=== PATIENT | male | born 1990 | race Caucasian/White ===

== ENCOUNTER 2019-11-02 16:09 | Emergency (ER) | payer OTHER, SELFPAY ==
[2019-11-02 16:37] VITALS: BP 151/86; PULSE 59; RESP 20; TEMP 36.8; O2SAT 97; BMI 28.2
--- NOTE | 2019-11-02 16:42 | HMH.EDUTC ---
[facility] [place] Disposition Clinical Impression: Otitis media Qualifiers: Otitis media type: unspecified Laterality: left Qualified Code(s): H66.92 - Otitis media, unspecified, left ear Disposition: Home, Self-Care Condition on Discharge: Good Instructions: Middle Ear Infections (Alternative Therapy), Middle Ear Infection, Amoxicillin Additional Instructions: Take medication as prescribed for otitis media left ear *Return if needed Straight to ER if any life threatening symptoms Follow up with Family doctor if no improvement or any worsening of symptoms Over the counter Motrin and/or Tylenol for fever or pain Warm salt water gargles may help with throat irritation Prescriptions: Amoxicillin [Amoxicillin 875MG Tab] 875 mg PO Q12H #20 tab Transmission Status: Pending to [facility] Referrals: Jeffrey Butts MD [Primary Care Provider] - As needed Time of Disposition: 16:47 Medical Decision Making - Mac Inquiry Pt receiving controlled substance: No Mac was queried for this patient: No Vital Signs: 11/02/19 16:37 Temperature 98.2 F Temperature Source Oral Pulse Rate [Right Brachial] 59 L Respiratory Rate 20 Blood Pressure [Right Arm] 151/86 H Blood Pressure Mean [Right Arm] 107 Blood Pressure Source [Right Arm] Automatic Cuff Blood Pressure Position [Right Arm] Sitting 02 Sat by Pulse Oximetry 97 Oxygen Delivery Method Room Air - Lab Data Lab results reviewed: Yes: I reviewed the patient's lab results. [facility] HPI - General Stated complaint: Sore throat Time Seen by Provider: 11/02/19 16:42 Mode of Arrival: Ambulatory Source of Information: Patient Limitations: No Limitations Description of Symptoms (Recalled from Triage Doc. by RN): PATIENT C/O LEFT-SIDED THROAT AND EAR PAIN SINCE SATURDAY; DENIES FEVER OR ANY OTHER SYMPTOMS. NO KNOWN SICK CONTACTS HEENT Symptoms (Recalled from RN notes): Yes Resp Symptoms (Recalled from RN notes): No Skin Symptoms (Recalled from RN notes): No MS Symptoms (Recalled from RN notes): No Functional Status (Recalled from RN notes): WNL - History of Present Illness Provider Complaint: Patient states that for the last week he has been having pain in his left ear and left side of his throat States that he isnt sure if it is his ear or throat States that when he swallows pain shoots into the left side of his throat and ear and over all not feeling well so he came in - Related Data Home Medications Medication Instructions Recorded Confirmed Buprenorphine HCl/Naloxone HCl 1 tab SL DAILY 08/18/18 08/18/18 [Buprenorphin-Naloxon 8-2 mg Sl] Previous Rx's Medication Instructions Recorded Amoxicillin [Amoxicillin 875MG 875 mg PO Q12H #20 tab 08/18/18 Tab] Amoxicillin [Amoxicillin 875MG 875 mg PO Q12H #20 tab 11/02/19 Tab] Allergies Allergy/AdvReac Type Severity Reaction Status Date / Time No Known Allergies Allergy Verified 05/31/18 15:32 - Worker's Comp Is this a Worker's Comp case?: No [facility] History - Hepatitis A Screen Drug use history?: No High risk sexual behaviors?: No History of sexually transmitted infection?: No Currently employed?: No Childcare worker?: No Do you have indoor plumbing?: Yes Do you have electricity?: Yes Attestation statement:: This patient has been screened for Hepatitis A risk factors. I have reviewed the patient's past medical history: Yes Medical History: Denies:: Diabetes Mellitus Type 1, Diabetes Mellitus Type 2 - Social History Smoking Status: Current every day smoker Tobacco Type: cigarettes # Packs/Day (cigarettes): 1 Alcohol Intake: current Alcohol Intake Frequency:: holidays/special occasions only Substance Use Type: heroin Occupational Status: other Family Hx:: Non-contributory ROS Obtained: Yes All systems reviewed & no additional complaints, Yes Systems reviewed as appropriate & no additional complaints - Constitutional Constitutional: Reports system reviewed and no additional compl
[2019-11-02 16:50] VITALS: BP 151/86; PULSE 59; RESP 20; TEMP 36.8; O2SAT 97
[2019-11-02 16:57] LABS: UTC Strep Screen (Rapid) Negative (Negative)
== END 2019-11-02 16:57 | disposition home or self-care (01) ==
PROVIDERS: Emergency Provider Nurse Practitioner; PCP Emergency Medicine
DX: H66.92 Otitis media, unspecified, left ear (principal); F17.210 Nicotine dependence, cigarettes, uncomplicated
CPT/HCPCS: 87880; 99201

== ENCOUNTER → 2019-12-08 08:40 | Outpatient (CLI) | payer OTHER, SELFPAY ==
--- NOTE | 2019-12-08 08:41 | US_ITS ---
PROCEDURE: US GALLBLADDER CLINICAL INDICATION: abdominal pain Upper abdominal pain with nausea COMPARISON: No exams were available for comparison FINDINGS: Pancreas: Pancreas is not well delineated due to overlying bowel gas. CT or MRI without and with contrast with pancreatic protocol may provide further evaluation if clinically desired. Liver: Unremarkable. There is appropriate direction of blood flow within a non dilated portal vein. Right kidney: Unremarkable appearing. No hydronephrosis. Gallbladder: No stones are evident. There is no gallbladder wall thickening. Common duct is normal in diameter. IMPRESSION: 1. Pancreas is not well delineated due to overlying bowel gas. CT or MRI without and with contrast with pancreatic protocol may provide further evaluation if clinically desired. 2. No gallstones or other significant anomaly Dictated by: Bhupinder Berrios MD 12/08/2019 15:55 Electronically signed by Bhupinder Berrios MD in [place] 12/08/2019 15:55
== END ==
PROVIDERS: PCP Emergency Medicine; Visit Provider Emergency Medicine
DX: R10.9 Unspecified abdominal pain (principal)
CPT/HCPCS: 76705

== ENCOUNTER → 2019-12-23 08:38 | Outpatient (CLI) | payer OTHER, SELFPAY ==
[2019-12-23 08:57] LABS: Basophils % 0.3 % (0.1-2.0); Eosinophils # 0.3 K/mm3 (0.0-0.4); Eosinophils % 2.9 % (0.1-12.0); Hematocrit 42.1 % (42.0-52.0); Hemoglobin 14.7 g/dL (14.1-18.0); Lymphocytes # 3.8 K/mm3 (0.7-4.5); Lymphocytes % 41.9 % (10-50); Mean Corpuscular HGB Conc 34.8 g/dL (31.8-35.4); Mean Corpuscular Hemoglobin 33.1 pg (27.0-31.2); Mean Platelet Volume 7.2 fl (7.4-10.4); Monocytes # 0.5 K/mm3 (0.1-1.0); Monocytes % 5.8 % (1.7-9.3); Neutrophils # 4.5 K/mm3 (1.8-7.8); Platelet Count 336 K/mm3 (142-424); Red Blood Count 4.43 M/mm3 (4.60-6.20); Red Cell Distribution Width 13.2 % (11.5-17.5); White Blood Count 9.1 K/mm3 (4.8-10.8)
[2019-12-23 10:13] LABS: Chloride 103 mmol/L (98-107)
[2019-12-23 10:14] LABS: Potassium 4.5 mmoL/L (3.5-5.1); Sodium 140 mmol/L (136-145)
[2019-12-23 10:16] LABS: Alanine Aminotransferase 28 U/L (12-78); Alkaline Phosphatase 69 U/L (38-126); Amylase 64 U/L (30-110); Anion Gap 13.5 mEq/L (5-15); Aspartate Amino Transferase 29 U/L (17-59); Bilirubin,Total 0.3 mg/dl (0.2-1.3); Blood Urea Nitrogen 5 mg/dl (9-20); Carbon Dioxide 28 mmol/L (22.0-30.0); Estimated Glomerular Filt Rate 133 ml/min (>60); GFR (African American) 161 ML/MIN (>60)
[2019-12-23 10:17] LABS: Albumin Level 4.3 g/dl (3.5-5.0); Albumin/Globulin Ratio 1.5 (1.1-1.8); Calcium 9.7 mg/dl (8.4-10.2); Globulin 2.8 g/dL (1.3-3.2); Glucose 85 mg/dl (74-100); Lipase 165 U/L (23-300); Total Protein,Serum 7.1 g/dl (6.3-8.2)
[2019-12-23 12:52] LABS: Coronavirus 19 IgG Antibody Negative (Negative); Coronavirus 19 IgM Antibody Negative (Negative)
== END ==
PROVIDERS: Visit Provider Surgery
DX: R10.10 Upper abdominal pain, unspecified (principal); Z01.818 Encounter for other preprocedural examination
CPT/HCPCS: 36415; 80053; 82150; 83690; 85025; 86328

== ENCOUNTER 2019-12-24 08:26 | Day surgery (SDC) | payer OTHER, SELFPAY ==
[2019-12-22 10:33] VITALS: BMI 28.7
[2019-12-24 09:21] VITALS: BP 137/68; PULSE 57; RESP 18; TEMP 36.4; O2SAT 99
--- NOTE | 2019-12-24 09:57 | HMH.ANESCL ---
[facility] Anesthesia Checklist - Patient Identification Patient Identification: Arm Band, Verbal (Name & ) - Structural Data Admitted From: Home Planned Operative Procedure/s: EGD Consent for Planned Operative Procedure(s) Verified: Yes Verified Documents: Surgical Consent, History and Physical - NPO Status Verified Time NPO: 23:00 - Chart Verification Results Verified: CBC, BMP - Additional verifications Anesthesia Reactions: No Hx Blood Transfusions: No Blood Transfusion Reaction: No - Airway Assessment C-Spine Mobility Assessed: Yes TMJ Mobility Assessed: Yes Dentition: Good Dentition - Neurological Assessment Level of Consciousness: Awake, Alert, Appropriate, Follows Commands Hx Seizures: No Numbness or tingling in extremities: No - Anesthesia Plan Anesthesia Risk discussed: Yes Anesthesia Plan: Verified ASA Class: II Anesthesia Type: MAC [facility] History I have reviewed the patient's past medical history: Yes Medical History: Reports:: Gastroesophageal Reflux Disease(GERD) Denies:: Cancer, Diabetes Mellitus Type 1, Diabetes Mellitus Type 2, Internal Pacemaker, MRSA, Seizures *Have you ever received a pneumonia vaccine?: No *Have you received a flu vaccine this season?: No Other Medical History: Denies: Blood Transfusion Reaction Anesthesia experience/problems:: None Laterality Cases: Bilateral: Myringotomy (Ear Tubes) Other Surgeries: Yes: Other. No: Pacemaker Amputation: No Fractures: Yes (rib) - *Social History Last grade of school completed: 11th or 12th Smoking Status: Current every day smoker Tobacco Type: cigarettes # Packs/Day (cigarettes): 1 Alcohol Intake: current Alcohol Intake Frequency:: holidays/special occasions only Substance Use Type: heroin, former substance user *Occupational Status:: other Housing: house Household Members: spouse *Travel in the last 8 weeks: None Family Hx:: No significant family history
[2019-12-24 10:12] VITALS: O2SAT 99
--- NOTE | 2019-12-24 10:25 | HMH.SCOPE ---
- Procedure: Date: 12/24/19 Procedure Performed:: Esophagogastroduodenoscopy with biopsy Indications:: Upper abdominal pain Performing Provider:: Geo Veliz MD Referring Provider:: . Sedation:: Monitored anesthesia care Procedure:: After informed consent was obtained the patient was taken to the endoscopy suite. Sedation ensued after the patient was transferred to the left lateral decubitus position. Pulse, blood pressure, and oxygen saturation were monitored throughout the procedure. The endoscope was advanced beyond the duodenal bulb. Retroflexion within the gastric lumen was accomplished. The gastroscope was carefully removed and the patient was transferred to recovery in stable condition. Please see findings and specimens below for detail. Findings:: Gastroesophageal junction at 37 cm Sliding hiatal hernia Patchy gastritis Focal inflammation and changes consistent with small healed ulcer in the prepyloric region Specimens:: Biopsy of prepyloric healed ulcer Recommendations:: Follow-up pathology Proton pump inhibition Ongoing evaluation of possible biliary disease Complications:: No immediate Estimated blood obtained (mL): 1
[2019-12-24 10:27] VITALS: BP 118/51; PULSE 79; RESP 16; TEMP 36.4; O2SAT 99
[2019-12-24 10:37] VITALS: BP 122/62; PULSE 61; RESP 16; O2SAT 99
[2019-12-24 10:47] VITALS: BP 127/68; PULSE 60; RESP 16; O2SAT 100
[2019-12-24 10:57] VITALS: BP 118/77; PULSE 56; RESP 16; O2SAT 100
== END 2019-12-24 10:57 | disposition home or self-care (01) ==
LOC: OUTP 08:27
PROVIDERS: PCP Emergency Medicine; Visit Provider Surgery
PROC: 0DJ08ZZ Inspection of Upper Intestinal Tract, Via Natural or Artificial Opening Endoscopic (ICD-10-PCS; CPT 43235; principal; 2019-12-24 10:00)
DX: K29.60 Other gastritis without bleeding (principal); K44.9 Diaphragmatic hernia without obstruction or gangrene; K31.89 Other diseases of stomach and duodenum; Z96.22 Myringotomy tube(s) status; Z72.0 Tobacco use; F11.11 Opioid abuse, in remission; K21.9 Gastro-esophageal reflux disease without esophagitis
CPT/HCPCS: 43239

== ENCOUNTER 2020-03-09 17:49 | Emergency (ER) | payer OTHER, SELFPAY ==
[2020-03-09 18:09] VITALS: BP 122/65; PULSE 63; RESP 19; TEMP 36.8; O2SAT 98; BMI 28.5
--- NOTE | 2020-03-09 18:32 | HMH.EDUTC ---
[facility] [place] Disposition Clinical Impression: Otitis media Qualifiers: Otitis media type: unspecified Laterality: left Qualified Code(s): H66.92 - Otitis media, unspecified, left ear Disposition: Home, Self-Care Condition on Discharge: Good Instructions: Middle Ear Infections (Alternative Therapy), Middle Ear Infection, Amoxicillin, Fluticasone Nasal [place] Additional Instructions: *Monitor Temp, Over the counter Motrin or Tylenol as directed/as needed Tylenol every 4 hours and Motrin every 6 hours (as long as your family doctor has told you that you can take it) for fever or pain. and straight to ER if unable to lower temp less than 101.0 after medication given *Humidifier/Vaporizer *Flonase 2 sprays in each nostril daily but be aware that it may take 2-3 days before you notice improvement *Take medication as prescribed Follow up IMMEDIATELY for new or worsening symptoms or no Noticeable improvement over the next 48-72 hours. 911 for difficulty breathing or swallowing Prescriptions: Amoxicillin [Amoxicillin 875MG Tab] 875 mg PO Q12H #20 tab Transmission Status: Pending to [id number] Fluticasone Propionate [Flonase 50mcg nasal spray 16gm] 1 - 2 spr NS DAILY #1 bottle Transmission Status: Pending to [id number] Referrals: Jeffrey Butts MD [Primary Care Provider] - As needed Time of Disposition: 18:34 Medical Decision Making - Mac Inquiry Pt receiving controlled substance: No Mac was queried for this patient: No Vital Signs: 03/09/20 18:09 Temperature 98.2 F Temperature Source Oral Pulse Rate [Radial] 63 Respiratory Rate 19 Blood Pressure [Right Arm] 122/65 Blood Pressure Mean [Right Arm] 84 Blood Pressure Source [Right Arm] Automatic Cuff Blood Pressure Position [Right Arm] Sitting 02 Sat by Pulse Oximetry 98 Oxygen Delivery Method Room Air [facility] [place] HPI - General Stated complaint: lEFT EAR PAIN Time Seen by Provider: 03/09/20 18:32 Mode of Arrival: Ambulatory Source of Information: Patient Limitations: No Limitations Description of Symptoms (Recalled from Triage Doc. by RN): left ear pain since saturday HEENT Symptoms (Recalled from RN notes): Yes Resp Symptoms (Recalled from RN notes): No Skin Symptoms (Recalled from RN notes): No MS Symptoms (Recalled from RN notes): No Functional Status (Recalled from RN notes): wnl - History of Present Illness Provider Complaint: Patient states that he has chronic ear infections States that he has been having pain and pressure in his left ear for over a week and has continued to get worse States that today pain was worse and having pressure like feeling and he knew the infection was getting worse so he came in to get checked - Related Data Home Medications Medication Instructions Recorded Confirmed buprenorphine 2 mg-naloxone 0.5 mg 1 tab SUBLINGUAL DAILY 11/30/19 01/08/20 sublingual tablet calcium carbonate 200 mg calcium 200 mg PO BID 11/30/19 01/08/20 (500 mg) chewable tablet Pantoprazole Sodium [Protonix 40mg 40 mg PO DAILY 12/22/19 01/08/20 tablet] Previous Rx's Medication Instructions Recorded Amoxicillin [Amoxicillin 875MG 875 mg PO Q12H #20 tab 03/09/20 Tab] Fluticasone Propionate [Flonase 1 - 2 spr NS DAILY #1 bottle 03/09/20 50mcg nasal spray 16gm] Allergies Allergy/AdvReac Type Severity Reaction Status Date / Time No Known Allergies Allergy Verified 12/22/19 10:32 - Worker's Comp Is this a Worker's Comp case?: No [facility] History - Hepatitis A Screen Drug use history?: No High risk sexual behaviors?: No History of sexually transmitted infection?: No Currently employed?: No Childcare worker?: No Do you have indoor plumbing?: Yes Do you have electricity?: Yes Attestation statement:: This patient has been screened for Hepatitis A risk factors. I have reviewed the patient's past medical history: Yes Medical History: Reports:: Gastroesophageal Reflux Disease(GERD) Denies:: Cancer,
[2020-03-09 18:38] VITALS: BP 122/65; PULSE 63; RESP 19; TEMP 36.8; O2SAT 98
== END 2020-03-09 18:39 | disposition home or self-care (01) ==
PROVIDERS: Emergency Provider Nurse Practitioner; PCP Emergency Medicine
DX: H66.92 Otitis media, unspecified, left ear (principal); K21.9 Gastro-esophageal reflux disease without esophagitis; F17.210 Nicotine dependence, cigarettes, uncomplicated
CPT/HCPCS: 99201

== ENCOUNTER 2020-10-19 17:18 | Emergency (ER) | payer OTHER, SELFPAY ==
[2020-10-19 17:50] VITALS: BP 134/78; PULSE 89; RESP 22; TEMP 39.1; O2SAT 100; BMI 29.1
--- NOTE | 2020-10-19 18:19 | HMH.EDUTC ---
[facility] [place] Disposition Clinical Impression: Viral syndrome Disposition: Home, Self-Care Condition on Discharge: Good Instructions: DI for Viral Syndrome, DI for Fever (Symptom) -- Adult, DI for COVID-19 (Suspected or Confirmed ), Coronavirus Disease 2019, Preventing the Spread of Coronavirus Discharge Instructions Additional Instructions: *Monitor Temp, Over the counter Motrin or Tylenol as directed/as needed Tylenol every 4 hours and Motrin every 6 hours (as long as your family doctor has told you that you can take it) for fever or pain. and straight to ER if unable to lower temp less than 101.0 after medication given *Warm salt water gargles may help to soothe the throat *Throat Lozenges *Warm fluids like tea with honey may help to soothe the throat *Sleep elevated *Humidifier/Vaporizer Your throat swab was sent for culture. Those results are typically sent to your primary care. Be sure to follow up in 2-3 days with your family doctor/primary care physician if no improvement so they can review those result and treat if necessary. If you don?t have a primary care doctor, I recommend you get one but in the mean time, you will have to return to a walk in clinic Follow up IMMEDIATELY for new or worsening symptoms or no Noticeable improvement over the next 48-72 hours. 911 for difficulty breathing or swallowing You were tested for today for COVID19 your test result should be back in the next 24-48 hours, you may call to the [facility] to see if your test results are back in the next 48 hours [phone] [facility] hours are 9am-9pm You was given a handout with instructions for Self Quarantine and Self isolation for while you wait on test results and what to do if they are positive If you are positive the Health Dept will be contacting you also Referrals: Jeffrey Butts MD [Primary Care Provider] - As needed Forms: Work/School Release Time of Disposition: 18:49 Medical Decision Making - Mac Inquiry Pt receiving controlled substance: No Mac was queried for this patient: No Vital Signs: 10/19/20 17:50 Temperature 102.3 F H Temperature Source Oral Pulse Rate [Right Brachial] 89 Respiratory Rate 22 Blood Pressure [Right Arm] 134/78 Blood Pressure Mean [Right Arm] 96 Blood Pressure Source [Right Arm] Automatic Cuff Blood Pressure Position [Right Arm] Sitting 02 Sat by Pulse Oximetry 100 Oxygen Delivery Method Room Air - Lab Data Lab results reviewed: Yes: I reviewed the patient's lab results. Lab Results 10/19/20 18:07: Influenza Type A Ag Negative, Influenza Type B Ag Negative 10/19/20 18:07: Strep Scn Rapid Clinic Negative Orders (Tests/Meds): ED MEDICATIONS Discontinued Medications Generic Name Dose Route Start Last Admin Trade Name Sarah PRN Reason Stop Dose Admin Acetaminophen 650 mg 10/19/20 18:07 10/19/20 18:16 Acetaminophen 325mg Tab PO 10/19/20 18:08 650 mg ONCE ONE Administration Ibuprofen 600 mg 10/19/20 18:06 10/19/20 18:16 Ibuprofen 600 Mg Tablet PO 10/19/20 18:07 600 mg ONCE ONE Administration ORDERS Category Date Time Status Covid-19 Nasal PCR ([facility]) Routine Lab 10/19/20 17:51 Received Strep Screen Confirmation Stat Micro 10/19/20 18:07 Received [facility] UTC HPI - General Stated complaint: sore throat, headache, Time Seen by Provider: 10/19/20 18:19 Mode of Arrival: Ambulatory Source of Information: Patient Limitations: No Limitations Description of Symptoms (Recalled from Triage Doc. by RN): PATIENT C/O SORE THROAT, HEADACHE, AND LOSS OF TASTE THAT STARTED THIS AFTERNOON HEENT Symptoms (Recalled from RN notes): Yes Resp Symptoms (Recalled from RN notes): No Skin Symptoms (Recalled from RN notes): No MS Symptoms (Recalled from RN notes): No Functional Status (Recalled from RN notes): WNL - History of Present Illness Provider Complaint: Patient states that he wasnt feeling well yesterday and last night he eat some hot chips and they tasted bland and not hot St
[2020-10-19 18:35] LABS: UTC Influenza A Antigen Negative (Negative); UTC Influenza B Antigen Negative (Negative); UTC Strep Screen (Rapid) Negative (Negative)
[2020-10-19 18:53] VITALS: BP 134/78; PULSE 89; RESP 22; TEMP 37; O2SAT 100
== END 2020-10-19 18:54 | disposition home or self-care (01) ==
PROVIDERS: Emergency Provider Nurse Practitioner; PCP Emergency Medicine
DX: B34.9 Viral infection, unspecified (principal); Z20.822 Contact with and (suspected) exposure to COVID-19; K21.9 Gastro-esophageal reflux disease without esophagitis; F17.210 Nicotine dependence, cigarettes, uncomplicated
CPT/HCPCS: 87804; 87880; 99202; G0463; U0003

== ENCOUNTER 2021-03-20 11:04 | Emergency (ER) | payer OTHER, SELFPAY ==
[2021-03-20 11:57] VITALS: BP 132/75; PULSE 85; RESP 16; TEMP 37.1; O2SAT 98; BMI 29.5
--- NOTE | 2021-03-20 12:14 | HMH.EDUTC ---
[facility] [place] Disposition Clinical Impression: Acute bronchitis Qualifiers: Bronchitis organism: unspecified organism Qualified Code(s): J20.9 - Acute bronchitis, unspecified Disposition: Home, Self-Care Condition on Discharge: Good Instructions: DI for Acute Bronchitis, DI for COVID-19 (Suspected or Confirmed ), Preventing the Spread of Coronavirus Discharge Instructions Additional Instructions: Drink plenty of fluids. Take tylenol or ibuprofen for pain or fever. Take the medications as directed. Follow up with your regular doctor. GO TO THE ER FOR ANY WORSENING SYMPTOMS Quarantine until you know the results of your covid-19 test. If it is positive, the health department should call you and give you further instructions about your length of Quarantine and other things. Notify your school or workplace of your results and follow their instructions regarding return to work/school. Prescriptions: Brompheniramine/Pseudoephed/Dm [Bromfed Dm Cough Syrup] 5 ml PO Q6HP PRN #240 ml PRN Reason: Cough Transmission Status: Received by [facility] predniSONE [Prednisone 20mg Tab] 20 mg PO BID 4 Days #8 tab Transmission Status: Received by [facility] Azithromycin [Z-Darshan 250mg Tab*] 250 mg PO UD DOSE PK #6 tab Transmission Status: Received by [facility] Referrals: Jeffrey Butts MD [Primary Care Provider] - Time of Disposition: 12:36 Medical Decision Making - Medical Records Medical records reviewed: No: I reviewed the patient's medical records. - Mac Inquiry Pt receiving controlled substance: No Vital Signs: 03/20/21 11:57 03/20/21 12:54 Temperature 98.7 F 98.7 F Temperature Source Oral Oral Pulse Rate 84 Pulse Rate [Right] 85 Respiratory Rate 16 16 Blood Pressure 130/74 Blood Pressure [Right Arm] 132/75 Blood Pressure Mean [Right Arm] 94 Blood Pressure Source Automatic Cuff Blood Pressure Source [Right Arm] Automatic Cuff Blood Pressure Position Sitting Blood Pressure Position [Right Arm] Sitting 02 Sat by Pulse Oximetry 98 Oxygen Delivery Method Room Air Room Air Orders (Tests/Meds): ORDERS Category Date Time Status Covid-19 Nasal PCR ([facility]) Routine Lab 03/20/21 12:46 Received [facility] [place] HPI - General Stated complaint: cough Time Seen by Provider: 03/20/21 12:14 Mode of Arrival: Ambulatory Source of Information: Patient Limitations: No Limitations Description of Symptoms (Recalled from Triage Doc. by RN): coughing since last night HEENT Symptoms (Recalled from RN notes): No Resp Symptoms (Recalled from RN notes): No Skin Symptoms (Recalled from RN notes): No MS Symptoms (Recalled from RN notes): No Functional Status (Recalled from RN notes): na - History of Present Illness Provider Complaint: He states that for the past 2 days he has had a productive cough and he has felt bad. His currently is being treated for bronchitis. He thinks that he has bronchitis also. He denies any known covid-19 exposure. - Related Data Home Medications Medication Instructions Recorded Confirmed buprenorphine 2 mg-naloxone 0.5 mg 1 tab SUBLINGUAL DAILY 11/30/19 10/19/20 sublingual tablet Previous Rx's Medication Instructions Recorded Azithromycin [Z-Darshan 250mg Tab*] 250 mg PO UD DOSE PK #6 tab 03/20/21 Brompheniramine/Pseudoephed/Dm 5 ml PO Q6HP PRN #240 ml 03/20/21 [Bromfed Dm Cough Syrup] predniSONE [Prednisone 20mg 20 mg PO BID 4 Days #8 tab 03/20/21 Tab] Allergies Allergy/AdvReac Type Severity Reaction Status Date / Time No Known Allergies Allergy Verified 12/22/19 10:32 - Worker's Comp Is this a Worker's Comp case?: No [facility] History - Hepatitis A Screen Drug use history?: No High risk sexual behaviors?: No History of sexually transmitted infection?: No Currently employed?: No Childcare worker?: No Do you have indoor plumbing?: Yes Do you have electricity?: Yes Attestation [facility]
[2021-03-20 12:54] VITALS: BP 130/74; PULSE 84; RESP 16; TEMP 37.1; O2SAT 98
== END 2021-03-20 12:54 | disposition home or self-care (01) ==
PROVIDERS: Emergency Provider Nurse Practitioner Family; PCP Emergency Medicine
DX: U07.1 COVID-19 (principal); J20.9 Acute bronchitis, unspecified; K21.9 Gastro-esophageal reflux disease without esophagitis
CPT/HCPCS: 99202; C9803; G0463; U0003; U0005

== ENCOUNTER 2021-11-13 08:57 | Emergency (ER) | payer OTHER, SELFPAY ==
--- NOTE | 2021-11-13 09:11 | HMH.EDUTC ---
[facility] [place] Disposition Clinical Impression: Otitis media Qualifiers: Otitis media type: suppurative Chronicity: acute Laterality: bilateral Recurrence: non-recurrent Spontaneous tympanic membrane rupture: without spontaneous rupture Qualified Code(s): H66.003 - Acute suppurative otitis media without spontaneous rupture of ear drum, bilateral Disposition: Home, Self-Care Condition on Discharge: Good Instructions: Middle Ear Infection Additional Instructions: Drink plenty of fluids. Take tylenol or ibuprofen for pain or fever. Take the medications as directed. Follow up with your regular doctor. GO TO THE ER FOR ANY WORSENING SYMPTOMS Prescriptions: Brompheniramine/Pseudoephed/Dm [Bromfed Dm Cough Syrup] 5 ml PO Q6HP PRN #240 ml PRN Reason: Cough Transmission Status: Received by [facility] Amoxicillin/Potassium Clav [Amox-Clav 875-125 mg Tablet] 1 tab PO BID #20 tab Transmission Status: Received by [facility] methylPREDNISolone [Medrol] 4 mg PO DIRECTED 6 Days #21 packet Transmission Status: Received by [facility] Referrals: Jeffrey Butts MD [Primary Care Provider] - Time of Disposition: 09:13 Medical Decision Making - Medical Records Medical records reviewed: No: I reviewed the patient's medical records. - Mac Inquiry Pt receiving controlled substance: No Vital Signs: 11/13/21 09:17 11/13/21 09:21 Temperature 98.2 F 98.2 F Temperature Source Oral Pulse Rate 56 L Pulse Rate [Left Radial] 56 L Respiratory Rate 18 18 Blood Pressure 138/73 Blood Pressure [Right Arm] 138/73 Blood Pressure Mean [Right Arm] 94 02 Sat by Pulse Oximetry 99 - Lab Data Lab results reviewed: Yes: I reviewed the patient's lab results. Lab Results 11/13/21 09:07: Group A Strep Rapid Negative Orders (Tests/Meds): ORDERS Category Date Time Status Strep Screen Confirmation Stat Micro 11/13/21 09:07 Received [facility] [place] HPI - General Stated complaint: lt ear pain Time Seen by Provider: 11/13/21 09:11 - History of Present Illness Provider Complaint: He c/o left ear pain, popping and pressure for the past 3 days. - Related Data Home Medications Medication Instructions Recorded Confirmed buprenorphine 2 mg-naloxone 0.5 mg 1 tab SUBLINGUAL DAILY 11/30/19 10/19/20 sublingual tablet Previous Rx's Medication Instructions Recorded Azithromycin [Z-Darshan 250mg Tab*] 250 mg PO UD DOSE PK #6 tab 03/20/21 Brompheniramine/Pseudoephed/Dm 5 ml PO Q6HP PRN #240 ml 03/20/21 [Bromfed Dm Cough Syrup] predniSONE [Prednisone 20mg 20 mg PO BID 4 Days #8 tab 03/20/21 Tab] Amoxicillin/Potassium Clav 1 tab PO BID #20 tab 11/13/21 [Amox-Clav 875-125 mg Tablet] Brompheniramine/Pseudoephed/Dm 5 ml PO Q6HP PRN #240 ml 11/13/21 [Bromfed Dm Cough Syrup] methylPREDNISolone [Medrol] 4 mg PO DIRECTED 6 Days #21 11/13/21 packet Allergies Allergy/AdvReac Type Severity Reaction Status Date / Time No Known Allergies Allergy Verified 12/22/19 10:32 [facility] History - Hepatitis A Screen Attestation statement:: This patient has been screened for Hepatitis A risk factors. I have reviewed the patient's past medical history: Yes Medical History: Reports:: Gastroesophageal Reflux Disease(GERD) Denies:: Cancer, Diabetes Mellitus Type 1, Diabetes Mellitus Type 2, Internal Pacemaker, MRSA, Seizures Other Medical History: Denies: Blood Transfusion Reaction Laterality Cases: Bilateral: Myringotomy (Ear Tubes) Other Surgeries: Yes: Other. No: Pacemaker Amputation: No Fractures: Yes (rib) - Social History Smoking Status: Current every day smoker Tobacco Type: cigarettes # Packs/Day (cigarettes): 1 Alcohol Intake: never Alcohol Intake Frequency:: holidays/special occasions only Substance Use Type: heroin, former substance user Occupational Status: other Housing: house Household Members: spouse Family Hx:: No signi
[2021-11-13 09:17] VITALS: BP 138/73; PULSE 56; RESP 18; TEMP 36.8; O2SAT 99; BMI 29.4
[2021-11-13 09:21] VITALS: BP 138/73; PULSE 56; RESP 18; TEMP 36.8
[2021-11-13 09:26] LABS: Strep Scrn Group A (Rapid) Negative (Negative)
== END 2021-11-13 09:21 | disposition home or self-care (01) ==
PROVIDERS: Emergency Provider Nurse Practitioner Family; PCP Emergency Medicine
DX: H66.003 Acute suppurative otitis media without spontaneous rupture of ear drum, bilateral (principal)
CPT/HCPCS: 87430; 99212; G0463

== ENCOUNTER 2021-12-27 11:40 | Emergency (ER) | payer OTHER, SELFPAY ==
[2021-12-27 11:59] VITALS: BP 138/76; PULSE 76; RESP 18; TEMP 36.7; O2SAT 98; BMI 28.6
--- NOTE | 2021-12-27 12:08 | HMH.EDUTC ---
[facility] [place] Disposition Clinical Impression: Otitis media Qualifiers: Otitis media type: unspecified Laterality: left Qualified Code(s): H66.92 - Otitis media, unspecified, left ear Disposition: Home, Self-Care Condition on Discharge: Good Instructions: Middle Ear Infection, Amoxicillin Additional Instructions: *Monitor Temp, Over the counter Motrin or Tylenol as directed/as needed Tylenol every 4 hours and Motrin every 6 hours (as long as your family doctor has told you that you can take it) for fever or pain. and straight to ER if unable to lower temp less than 101.0 after medication given Take medications as prescribed *Sleep elevated *Humidifier/Vaporizer Follow up IMMEDIATELY for new or worsening symptoms or no Noticeable improvement over the next 48-72 hours. 911 for difficulty breathing or swallowing Prescriptions: Amoxicillin [Amoxicillin 875MG Tab] 875 mg PO Q12H #20 tab Transmission Status: Pending to [facility] methylPREDNISolone [Medrol 4mg tab] 4 mg PO DIRECTED #21 tab Transmission Status: Pending to [facility] Referrals: Jeffrey Butts MD [Primary Care Provider] - As needed Forms: Work/School Release Time of Disposition: 12:11 Medical Decision Making - Mac Inquiry Pt receiving controlled substance: No Mac was queried for this patient: No Vital Signs: 12/27/21 11:59 Temperature 98.1 F Temperature Source Oral Pulse Rate [Left] 76 Respiratory Rate 18 Blood Pressure [Right Arm] 138/76 Blood Pressure Mean [Right Arm] 96 02 Sat by Pulse Oximetry 98 [facility] [place] HPI - General Stated complaint: lt ear pain Time Seen by Provider: 12/27/21 12:08 Mode of Arrival: Ambulatory Source of Information: Patient Limitations: No Limitations Description of Symptoms (Recalled from Triage Doc. by RN): patient comes in with complaints of left ear pain. began 3 days ago HEENT Symptoms (Recalled from RN notes): Yes Resp Symptoms (Recalled from RN notes): No Skin Symptoms (Recalled from RN notes): No MS Symptoms (Recalled from RN notes): No Functional Status (Recalled from RN notes): n/a - History of Present Illness Provider Complaint: Patient state that he has been having pain in his left ear for the last 3 days that has continued to get worse State that he had some left over amoxicillin and took it and it helped some but he is out and his ear is still hurting so he came in - Related Data Home Medications Medication Instructions Recorded Confirmed buprenorphine 2 mg-naloxone 0.5 mg 1 tab SUBLINGUAL DAILY 11/30/19 12/27/21 sublingual tablet Previous Rx's Medication Instructions Recorded Amoxicillin [Amoxicillin 875MG 875 mg PO Q12H #20 tab 12/27/21 Tab] methylPREDNISolone [Medrol 4mg 4 mg PO DIRECTED #21 tab 12/27/21 tab] Allergies Allergy/AdvReac Type Severity Reaction Status Date / Time No Known Allergies Allergy Verified 12/27/21 12:01 - Worker's Comp Is this a Worker's Comp case?: No [facility] History - Hepatitis A Screen Attestation statement:: This patient has been screened for Hepatitis A risk factors. I have reviewed the patient's past medical history: Yes Medical History: Reports:: Gastroesophageal Reflux Disease(GERD) Denies:: Cancer, Diabetes Mellitus Type 1, Diabetes Mellitus Type 2, Internal Pacemaker, MRSA, Seizures Other Medical History: Denies: Blood Transfusion Reaction Laterality Cases: Bilateral: Myringotomy (Ear Tubes) Other Surgeries: Yes: Other. No: Pacemaker Amputation: No Fractures: Yes (rib) - Social History Smoking Status: Current every day smoker Tobacco Type: cigarettes # Packs/Day (cigarettes): 1 Alcohol Intake: never Alcohol Intake Frequency:: holidays/special occasions only Substance Use Type: heroin, former substance user Occupational Status: other Housing: house Household Members: spouse Family Hx:: No significant family history ROS Obtained: Yes All systems reviewed & no addit
[2021-12-27 12:19] VITALS: BP 138/76; PULSE 76; RESP 18; TEMP 36.7
== END 2021-12-27 12:20 | disposition home or self-care (01) ==
PROVIDERS: Emergency Provider Nurse Practitioner; PCP Emergency Medicine
DX: H66.92 Otitis media, unspecified, left ear (principal)
CPT/HCPCS: 99212; G0463

== ENCOUNTER 2022-04-22 09:24 | Emergency (ER) | payer OTHER, SELFPAY ==
--- NOTE | 2022-04-22 10:12 | EXP.UTC ---
Discharge Plan Disposition Patient Disposition: Home, Self-Care Condition: Good Prescriptions Prescriptions: New methylprednisolone 4 mg Tablets,Dose Pack 4 mg PO DIRECTED Qty: 21 0RF troayfifsrecpll-yixlcjupy-ZK [Bromfed DM] 2-30-10 mg/5 mL Syrup 5 ml PO Q6H PRN (Reason: Cough) Qty: 240 0RF amoxicillin-pot clavulanate 875-125 mg Tablet 1 tab PO Q12H Qty: 20 0RF fluticasone propionate [fluticasone propionate] 50 mcg/actuation spray,suspension 1 spr intranasal DAILY 30 Days Qty: 120 0RF No Action buprenorphine-naloxone 2-0.5 mg tablet, sublingual 1 tab SL DAILY Label Comments: DISSOLVE 1.5 TABLETS SUBLINGUALLY EVERY DAY Referrals Follow up/Referrals: Jeffrey Butts MD [Primary Care Provider] - See instructions Activity Restrictions/Add. Instructions Additional Instructions/Restrictions: Drink plenty of fluids. Take tylenol or ibuprofen for pain or fever. Take the medications as directed. Follow up with your regular doctor. GO TO THE ER FOR ANY WORSENING SYMPTOMS Clinical Impressions Clinical Impression: Otitis media Instructions Patient Instructions: Middle Ear Infection, Fluticasone Nasal [place] Discharge ED Provider: Harry Bello [facility] [place] General Stated complaint: Left Earache Time Seen by Provider: 04/22/22 10:12 History of Present Illness Provider Complaint: He c/o left ear pain for the past 3 days. He gets ear infections frequently and he is followed by ent, but he can't be seen there until 04/30,so he came here today. Related Data Home Medications Medication Instructions Recorded Confirmed buprenorphine 2 mg-naloxone 0.5 mg 1 tab sublingual DAILY drug 11/30/19 03/06/22 sublingual tablet addiction Previous Rx's Medication Instructions Recorded amoxicillin 875 mg-potassium 1 tab PO Q12H #20 tabs 04/22/22 clavulanate 125 mg tablet tycvqbphgtwhpac-hbpbribqciuyrtp-QS 5 ml PO Q6H PRN Cough #240 mL 04/22/22 2 mg-30 mg-10 mg/5 mL oral syrup (Bromfed DM) fluticasone propionate 50 1 spr intranasal DAILY 30 days 04/22/22 mcg/actuation nasal #120 ea spray,suspension methylprednisolone 4 mg tablets in 4 mg PO DIRECTED #21 tabs 04/22/22 a dose pack Allergies Allergy/AdvReac Type Severity Reaction Status Date / Time No Known Allergies Allergy Verified 04/22/22 10:21 PFSH PFS Medical History GERD (gastroesophageal reflux disease) Left serous otitis media Surgical History Hx of myringotomy Family History Other Hypertension Social History Smoking Status: Current every day smoker tobacco type: cigarettes packs per day: 1 second hand exposure: Yes alcohol intake: never substance use type: former substance user and heroin current occupational status: other Travel in the last 8 weeks: None household members: spouse housing: house current occupational exposures/hazards: No caffeine: Yes ROS Obtained: Yes All systems reviewed & no additional complaints except as documented Constitutional Constitutional: Denies chills, Denies fever(s) and Reports poor appetite Eyes Eyes: Denies eye discharge ENT Ears, Nose, Mouth, and Throat: Denies ear discharge, Reports otalgia, Denies hearing loss, Denies sinus pain and Reports sore throat Cardiovascular Cardiovascular: Denies chest pain and Denies dyspnea Respiratory Respiratory: Denies chest congestion, Reports cough and Denies dyspnea Gastrointestinal Gastrointestingal: Denies abdominal pain, diarrhea, nausea or vomiting Musculoskeletal Musculoskeletal: Denies arthralgias Integumentary/Breasts Skin/Breast: Denies rash Physical Exam General General appearance: alert and in no apparent distress Head Head exam: atraumatic, normocephalic and normal i
[2022-04-22 10:20] VITALS: BP 126/76; PULSE 61; RESP 18; TEMP 36.6; O2SAT 98; BMI 29.8
[2022-04-22 10:51] VITALS: BP 126/76; PULSE 61; RESP 18; TEMP 36.6
== END 2022-04-22 10:51 | disposition home or self-care (01) ==
PROVIDERS: Emergency Provider Nurse Practitioner Family; PCP Emergency Medicine
DX: H65.92 Unspecified nonsuppurative otitis media, left ear (principal); R05.9 Cough, unspecified; K21.9 Gastro-esophageal reflux disease without esophagitis; F17.210 Nicotine dependence, cigarettes, uncomplicated; Z79.51 Long term (current) use of inhaled steroids; Z79.52 Long term (current) use of systemic steroids; Z82.49 Family history of ischemic heart disease and other diseases of the circulatory system

== ENCOUNTER 2022-07-01 11:22 | Emergency (ER) | payer OTHER, SELFPAY ==
--- NOTE | 2022-07-01 11:33 | EXP.UTC ---
Discharge Plan Disposition Patient Disposition: Home, Self-Care Condition: Good Prescriptions Prescriptions: New bsadjzwxaopjgxi-lehmyrnli-RM [Bromfed DM] 2-30-10 mg/5 mL Syrup 5 ml PO Q6H PRN (Reason: Cough) Qty: 240 0RF amoxicillin-pot clavulanate 875-125 mg Tablet 1 tab PO Q12H Qty: 20 0RF prednisone [prednisone] 20 mg tablet 20 mg PO BID 3 Days Qty: 6 0RF No Action buprenorphine-naloxone 2-0.5 mg tablet, sublingual 1 tab SL DAILY Label Comments: DISSOLVE 1.5 TABLETS SUBLINGUALLY EVERY DAY Referrals Follow up/Referrals: Jeffrey Butts MD [Primary Care Provider] - See instructions Activity Restrictions/Add. Instructions Additional Instructions/Restrictions: Drink plenty of fluids. Take tylenol or ibuprofen for pain or fever. Take the medications as directed. Follow up with your regular doctor. GO TO THE ER FOR ANY WORSENING SYMPTOMS Clinical Impressions Clinical Impression: Left otitis media Instructions Patient Instructions: Middle Ear Infection Discharge ED Provider: Harry Bello [facility] [place] General Stated complaint: ear pain Time Seen by Provider: 07/01/22 11:33 History of Present Illness Provider Complaint: He states that for the past 3 days he has had worsening left ear pain. Related Data Home Medications Medication Instructions Recorded Confirmed buprenorphine 2 mg-naloxone 0.5 mg 1 tab sublingual DAILY drug 11/30/19 07/01/22 sublingual tablet addiction Previous Rx's Medication Instructions Recorded amoxicillin 875 mg-potassium 1 tab PO Q12H #20 tabs 07/01/22 clavulanate 125 mg tablet lrsutakukgogzxe-rwsgsfsrwlmcewd-YB 5 ml PO Q6H PRN Cough #240 mL 07/01/22 2 mg-30 mg-10 mg/5 mL oral syrup (Bromfed DM) prednisone 20 mg tablet 20 mg PO BID 3 days #6 tabs 07/01/22 Allergies Allergy/AdvReac Type Severity Reaction Status Date / Time No Known Allergies Allergy Verified 07/01/22 11:48 [facility] Disclaimer: The information contained in this section may have been updated after the patient was seen, as this information can be updated by other users. Medical History GERD (gastroesophageal reflux disease) Left serous otitis media Surgical History Hx of myringotomy Family History Other Hypertension Social History Smoking Status: Current every day smoker tobacco type: cigarettes packs per day: 1 second hand exposure: Yes alcohol intake: never substance use type: former substance user and heroin current occupational status: other Travel in the last 8 weeks: None household members: spouse housing: house current occupational exposures/hazards: No caffeine: Yes ROS Obtained: Yes All systems reviewed & no additional complaints except as documented Constitutional Constitutional: Denies chills, Reports fever(s) and Reports poor appetite Eyes Eyes: Denies eye discharge ENT Ears, Nose, Mouth, and Throat: Denies ear discharge, Reports otalgia, Denies hearing loss, Denies sinus pain and Reports sore throat Cardiovascular Cardiovascular: Denies chest pain and Denies dyspnea Respiratory Respiratory: Denies chest congestion, Reports cough and Denies dyspnea Gastrointestinal Gastrointestingal: Denies abdominal pain, diarrhea, nausea or vomiting Musculoskeletal Musculoskeletal: Denies arthralgias Integumentary/Breasts Skin/Breast: Denies rash Physical Exam General General appearance: alert and in no apparent distress Head Head exam: atraumatic, normocephalic and normal inspection Eye Eye exam: Present normal appearance; Absent PERRL or EOMI ENT ENT exam: Present mucous membranes moist and normal external ear exam Expanded ENT Exam TM/Canal exam: Bilateral TM: erythema, bulging and effusion Nose exa
[2022-07-01 11:35] VITALS: BP 146/74; PULSE 70; RESP 20; TEMP 36.7; O2SAT 97; BMI 30.2
[2022-07-01 12:15] VITALS: BP 146/74; PULSE 70; RESP 20; TEMP 36.7; O2SAT 97
== END 2022-07-01 12:15 | disposition home or self-care (01) ==
PROVIDERS: Emergency Provider Nurse Practitioner Family; PCP Emergency Medicine
DX: H66.92 Otitis media, unspecified, left ear (principal)
CPT/HCPCS: 99212; 99213; G0463

== ENCOUNTER 2023-02-19 17:05 | Emergency (ER) | payer OTHER, SELFPAY ==
--- NOTE | 2023-02-19 17:15 | EXP.UTC ---
Discharge Plan Disposition Patient Disposition: Home, Self-Care Condition: Good Prescriptions Prescriptions: New methylprednisolone 4 mg Tablets,Dose Pack 4 mg PO DIRECTED Qty: 21 0RF pseudoephedrine HCl 30 mg tablet 30 mg PO Q6HP PRN (Reason: Congestion) Qty: 30 0RF amoxicillin-pot clavulanate 875-125 mg Tablet 1 tab PO Q12H Qty: 20 0RF No Action buprenorphine-naloxone 2-0.5 mg tablet, sublingual 1 tab SL DAILY Patient Comments: DISSOLVE 1.5 TABLETS SUBLINGUALLY EVERY DAY fluticasone propionate [Flonase Allergy Relief] 50 mcg/actuation spray,suspension 2 spray intranasal DAILY Qty: 16 3RF Rx Instructions: administer into each nostril methylprednisolone [Medrol (Darshan)] 4 mg tablets,dose pack See Rx Instructions PO PER PKG DIR Qty: 21 0RF Rx Instructions: PO PER PKG DIR Referrals Follow up/Referrals: Jeffrey Butts MD [Primary Care Provider] - See instructions Activity Restrictions/Add. Instructions Additional Instructions/Restrictions: Drink plenty of fluids. Take tylenol or ibuprofen for pain or fever. Take the medications as directed. Follow up with your regular doctor. GO TO THE ER FOR ANY WORSENING SYMPTOMS Clinical Impressions Clinical Impression: Otitis media Instructions Patient Instructions: Middle Ear Infection Discharge ED Provider: Harry Bello [facility] General Stated complaint: lt ear pain Time Seen by Provider: 02/19/23 17:15 History of Present Illness Provider Complaint: He states that for the past 5 days he has had worsening left ear pain and pressure. He has a history of getting ear infections kind of frequently. Related Data Home Medications Medication Instructions Recorded Confirmed buprenorphine 2 mg-naloxone 0.5 mg 1 tab sublingual DAILY drug 11/30/19 12/05/22 sublingual tablet addiction Previous Rx's Medication Instructions Recorded fluticasone propionate 50 2 spray intranasal DAILY allergies 12/05/22 mcg/actuation nasal #16 grams spray,suspension (Flonase Allergy Relief) methylprednisolone 4 mg tablets in See Rx Instructions PO PER PKG DIR 12/05/22 a dose pack (Medrol (Darshan)) #21 tabs amoxicillin 875 mg-potassium 1 tab PO Q12H #20 tabs 02/19/23 clavulanate 125 mg tablet methylprednisolone 4 mg tablets in 4 mg PO DIRECTED #21 tabs 02/19/23 a dose pack pseudoephedrine HCl 30 mg tablet 30 mg PO Q6HP PRN Congestion #30 02/19/23 tabs Allergies Allergy/AdvReac Type Severity Reaction Status Date / Time No Known Allergies Allergy Verified 12/05/22 11:46 [facility] Disclaimer: The information contained in this section may have been updated after the patient was seen, as this information can be updated by other users. Medical History (Updated 02/19/23 @ 17:33 by Harry Bello APRN) GERD (gastroesophageal reflux disease) Left serous otitis media Post-nasal drainage Surgical History Hx of myringotomy Family History Other Hypertension Social History Smoking Status: Current every day smoker tobacco type: cigarettes packs per day: 1 second hand exposure: Yes alcohol intake: never substance use type: former substance user and heroin current occupational status: other Travel in the last 8 weeks: None household members: spouse housing: house current occupational exposures/hazards: No caffeine: Yes ROS Obtained: Yes All systems reviewed & no additional complaints except as documented Constitutional Constitutional: Denies chills, Reports fever(s) and Reports poor appetite Eyes Eyes: Denies eye discharge ENT Ears, Nose, Mouth, and Throat: Denies ear discharge, Reports otalgia, Denies hearing loss, Denies sinus pain and Reports sore throat Cardiovascular Cardiovascular: Denies chest pain and D
[2023-02-19 17:18] VITALS: BP 104/52; PULSE 58; RESP 18; TEMP 36.8; O2SAT 98; BMI 27.1
[2023-02-19 17:35] VITALS: BP 104/52; PULSE 58; RESP 16; TEMP 36.8; O2SAT 98
== END 2023-02-19 17:39 | disposition home or self-care (01) ==
PROVIDERS: Emergency Provider Nurse Practitioner Family; PCP Emergency Medicine
DX: H66.93 Otitis media, unspecified, bilateral (principal); F17.210 Nicotine dependence, cigarettes, uncomplicated; K21.9 Gastro-esophageal reflux disease without esophagitis
CPT/HCPCS: 99212; 99214; G0463

== ENCOUNTER 2023-05-22 10:51 | Emergency (ER) | payer OTHER, SELFPAY ==
[2023-05-22 10:53] VITALS: BP 103/42; PULSE 62; RESP 18; O2SAT 99; BMI 27.1
--- NOTE | 2023-05-22 11:02 | XR_ITS ---
FINAL REPORT CLINICAL HISTORY: TOP OF FOOT INJURY. large object fell on foot. COMPARISON: None FINDINGS: LEFT FOOT Three views of the left foot demonstrate no acute fracture or dislocation. The visualized joint spaces are normally aligned. The soft tissues are unremarkable. There is deformity of the distal phalanx of the first toe, distal aspect, that appears chronic. IMPRESSION: No acute bony abnormality. Reviewed, Interpreted and Dictated by Raghu Ortiz MD Transcribed by Danae Chaney Authenticated and [facility]
--- NOTE | 2023-05-22 11:13 | PC.NURSE ---
From radiology via wheelchair
--- NOTE | 2023-05-22 11:30 | HMH.EDGENADL ---
Discharge Plan Disposition Patient Disposition: Home, Self-Care Prescriptions Prescriptions: No Action buprenorphine-naloxone 2-0.5 mg tablet, sublingual 1 tab SL DAILY Patient Comments: DISSOLVE 1.5 TABLETS SUBLINGUALLY EVERY DAY fluticasone propionate [Flonase Allergy Relief] 50 mcg/actuation spray,suspension 2 spray intranasal DAILY Qty: 16 3RF Rx Instructions: administer into each nostril methylprednisolone [Medrol (Darshan)] 4 mg tablets,dose pack See Rx Instructions PO PER PKG DIR Qty: 21 0RF Rx Instructions: PO PER PKG DIR methylprednisolone 4 mg Tablets,Dose Pack 4 mg PO DIRECTED Qty: 21 0RF pseudoephedrine HCl 30 mg tablet 30 mg PO Q6HP PRN (Reason: Congestion) Qty: 30 0RF amoxicillin-pot clavulanate 875-125 mg Tablet 1 tab PO Q12H Qty: 20 0RF Referrals Follow up/Referrals: Scott Danielle DO [Primary Care Provider] - See instructions Activity Restrictions/Add. Instructions Additional Instructions/Restrictions: There is no evidence of any fracture or dislocation on your x-ray please treat this conservatively with ice compression and elevation as discussed. You may bear weight as tolerated if not improving in 1 to 2 weeks please follow-up with an orthopedic surgeon. Clinical Impressions Clinical Impression: Contusion of foot, Crush injury of foot Discharge ED Provider: Wilfred Santa [facility] HPI General Chief complaint: Extremity Injury, Lower Stated complaint: AO left foot pain swelling Time Seen by Provider: 05/22/23 11:26 Mode of Arrival: Ambulatory Source of Information: Patient Limitations: No Limitations Description of Symptoms (Recalled from ER Triage Doc. by RN): c/o left foot pain after a fence post fell on it about 20 minutes ago History of Present Illness HPI narrative: Gentleman is a 32-year-old male present today with a left foot injury. Was working with a fence in the post fell directly onto his left foot injuring the mid and lateral aspect of his left foot. No injuries elsewhere but has been able to bear weight without significant difficulty. Denies any other medical problems. Related Data Home Medications Medication Instructions Recorded Confirmed buprenorphine 2 mg-naloxone 0.5 mg 1 tab sublingual DAILY drug 11/30/19 12/05/22 sublingual tablet addiction Previous Rx's Medication Instructions Recorded fluticasone propionate 50 2 spray intranasal DAILY allergies 12/05/22 mcg/actuation nasal #16 grams spray,suspension (Flonase Allergy Relief) methylprednisolone 4 mg tablets in See Rx Instructions PO PER PKG DIR 12/05/22 a dose pack (Medrol (Darshan)) #21 tabs amoxicillin 875 mg-potassium 1 tab PO Q12H #20 tabs 02/19/23 clavulanate 125 mg tablet methylprednisolone 4 mg tablets in 4 mg PO DIRECTED #21 tabs 02/19/23 a dose pack pseudoephedrine HCl 30 mg tablet 30 mg PO Q6HP PRN Congestion #30 02/19/23 tabs Allergies Allergy/AdvReac Type Severity Reaction Status Date / Time No Known Allergies Allergy Verified 12/05/22 11:46 [facility] Disclaimer: The information contained in this section may have been updated after the patient was seen, as this information can be updated by other users. Medical History (Updated 05/22/23 @ 11:30 by Wilfred Santa MD) GERD (gastroesophageal reflux disease) Left serous otitis media Post-nasal drainage Surgical History Hx of myringotomy Family History Other Hypertension Social History Smoking Status: Current every day smoker tobacco type: cigarettes packs per day: 1 second hand exposure: Yes alcohol intake: never substance use type: former substance user and heroin current occupational status: other Travel in the last 8 weeks: None household members: spouse housing: house current oc
[2023-05-22 11:34] VITALS: BP 120/57; PULSE 64; RESP 18; TEMP 36.7; O2SAT 100
== END 2023-05-22 11:34 | disposition home or self-care (01) ==
PROVIDERS: Emergency Provider Student in an Organized Health Care Education/Training Program; PCP Internal Medicine
DX: S97.82XA Crushing injury of left foot, initial encounter (principal); W20.8XXA Other cause of strike by thrown, projected or falling object, initial encounter; F17.210 Nicotine dependence, cigarettes, uncomplicated
CPT/HCPCS: 73630; 99283

== ENCOUNTER 2023-06-15 10:13 | Emergency (ER) | payer OTHER, SELFPAY ==
[2023-06-15 10:25] VITALS: BP 138/64; PULSE 76; RESP 18; TEMP 36.6; O2SAT 97; BMI 27.1
--- NOTE | 2023-06-15 10:52 | ED_ITS ---
Discharge Plan Disposition Patient Disposition: Home, Self-Care Condition: Good Prescriptions Prescriptions: New promethazine-phenylephrine [Promethazine VC] 6.25-5 mg/5 mL syrup 5 ml PO Q4-6H PRN (Reason: cold symptoms) Qty: 120 0RF Rx Instructions: Do not drink alcohol while taking this medication No Action buprenorphine-naloxone 2-0.5 mg tablet, sublingual 1 tab SL DAILY Patient Comments: DISSOLVE 1.5 TABLETS SUBLINGUALLY EVERY DAY Referrals Follow up/Referrals: Scott Danielle DO [Primary Care Provider] - See instructions Activity Restrictions/Add. Instructions Additional Instructions/Restrictions: If symptoms persist or worsen return to [facility] or go to primary care provider. Clinical Impressions Clinical Impression: Acute upper respiratory infection Instructions Patient Instructions: DI for Viral Upper Respiratory Infection -- Adult Discharge ED Provider: Olivia Ceron [facility] [place] General Stated complaint: congestion cough Mode of Arrival: Ambulatory Source of Information: Patient Limitations: No Limitations Time Seen by Provider: 06/15/23 10:52 Description of Symptoms (Recalled from Triage Doc. by RN): Pt's symptoms are nasal and chest congestion. HEENT Symptoms (Recalled from RN notes): Yes Resp Symptoms (Recalled from RN notes): No Skin Symptoms (Recalled from RN notes): No MS Symptoms (Recalled from RN notes): No Functional Status (Recalled from RN notes): n/a History of Present Illness Provider Complaint: Pt reports that for the last 3 days he has had clear nasal drainage, stuffy nose, and a dry cough. He states that he has taken OTC cold medication for symptom relief. 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 Medical History (Updated 06/15/23 @ 11:01 by Olivia Ceron APRN) GERD (gastroesophageal reflux disease) Left serous otitis media Post-nasal drainage Surgical History Hx of myringotomy Family History Other Hypertension Social History Smoking Status: Current every day smoker tobacco type: cigarettes packs per day: 1 second hand exposure: Yes alcohol intake: never substance use type: former substance user and heroin current occupational status: other Travel in the last 8 weeks: None household members: spouse housing: house current occupational exposures/hazards: No caffeine: Yes ROS Obtained: Yes All systems reviewed & no additional complaints except as documented Constitutional Constitutional: Reports system reviewed and no additional complaints, except as documented, Reports fever(s) and Reports malaise Eyes Eyes: Reports system reviewed and no additional complaints, except as documented ENT Ears, Nose, Mouth, and Throat: Reports system reviewed and no additional complaints, except as documented, Reports nasal congestion, Reports nasal discharge and Reports sinus pressure Cardiovascular Cardiovascular: Reports system reviewed and no additional complaints, except as documented Respiratory Respiratory: Reports system reviewed and no additional complaints, except as documented and Reports non-productive cough Gastrointestinal Gastrointestingal: Reports system reviewed and no additional complaints, except as documented Genitourinary Male Genitourinary: Reports system reviewed and no additional complaints, except as documented Musculoskeletal Musculoskeletal: Reports system reviewed and no additional complaints, except as documented Integumentary/Breasts Skin/Breast: Reports system reviewed and no additional complaints, except as documented Neurologic Neurologic: Reports system reviewed and no additional complaints, except as documented Endocrine Endocrine: Reports system reviewed and no additional complaints, except as documented Hematologic/Lymphatic Henatologic/Lymphatic: Reports system reviewed and no additional complaints, except as documented Allergic/Immunologic Allergic/Immunologic: Reports system reviewed and no additional complaints, except as documented Physical Exam General General appearance: alert and in no apparent distress Head Head exam: atraumatic and normocephalic Eye Eye exam: Present normal appearance Expanded ENT Exam External ear exam: Present normal external inspection Nasal speculum exam: Bilateral: other (clear drainage with edema noted) Mouth exam: Present normal external inspection Teeth exam: Present normal inspection Throat exam: Present normal inspection Neck Neck exam: Present normal inspection Chest Chest inspection: Present normal inspection and symmetric chest wall rise Respiratory Respiratory exam: Present normal lung sounds bilaterally Cardiovascular Cardiovascular exam: Present regular rate, normal rhythm and normal heart sounds Abdominal Exam Abdominal exam: Present soft and normal bowel sounds Extremities Exam Extremities exam: Present normal inspection Back Exam Back exam: Present normal inspection Neurological Exam Neurological exam: Present alert and oriented X3 Psychiatric Psychiatric exam: Present normal affect and normal mood Skin Skin exam: Present warm, dry and intact Lymphatic Lymphatic Findings: no adenopathy Medical Decision Making Mac Inquiry Pt receiving controlled substance: No Mac was queried for this patient: No Vital Signs: 06/15/23 10:25 Temperature 97.9 F Temperature Source Oral Pulse Rate [Right Radial] 76 Respiratory Rate 18 Blood Pressure [Right Arm] 138/64 Blood Pressure Mean [Right Arm] 88 Blood Pressure Source [Right Arm] Manual Cuff/ Auscultation Blood Pressure Position [Right Arm] Sitting 02 Sat by Pulse Oximetry 97 Oxygen Delivery Method Room Air
[2023-06-15 11:12] VITALS: BP 136/68; PULSE 76; RESP 18; TEMP 36.6; O2SAT 97
== END 2023-06-15 11:12 | disposition home or self-care (01) ==
PROVIDERS: Emergency Provider Nurse Practitioner Family; PCP Internal Medicine
DX: R05.9 Cough, unspecified (principal); J06.9 Acute upper respiratory infection, unspecified; R09.81 Nasal congestion; R09.89 Other specified symptoms and signs involving the circulatory and respiratory systems; B34.9 Viral infection, unspecified; K21.9 Gastro-esophageal reflux disease without esophagitis; F17.210 Nicotine dependence, cigarettes, uncomplicated
CPT/HCPCS: 99212; 99214; G0463

== ENCOUNTER 2023-08-26 05:07 | Emergency (ER) | payer OTHER, SELFPAY ==
[2023-08-26 05:13] VITALS: BP 142/67; PULSE 69; RESP 15; TEMP 36.6; O2SAT 99; BMI 28.5
[2023-08-26 05:35] VITALS: BP 131/69; PULSE 62; O2SAT 98
--- NOTE | 2023-08-26 05:46 | XR_ITS ---
PROCEDURE INFORMATION: Exam: XR Right Shoulder Exam date and time: 08/26/2023 5:50 AM Age: 33 years old Clinical indication: Pain; Shoulder; Right; Additional info: R shoulder pain TECHNIQUE: Imaging protocol: Radiologic exam of the right shoulder. Views: 2 or more views. COMPARISON: No relevant prior studies available. FINDINGS: Bones/joints: Normal. If acute AC joint pathology is suspected however, a bilateral weight-bearing study may be indicated. Soft tissues: Normal. IMPRESSION: No acute findings.
--- NOTE | 2023-08-26 05:46 | CT_ITS ---
PROCEDURE INFORMATION: Exam: CT Cervical Spine Without Contrast Exam date and time: 08/26/2023 5:59 AM Age: 33 years old Clinical indication: Neck pain; Additional info: Neck and R arm pain, radiculopathy symptoms TECHNIQUE: Imaging protocol: Computed tomography of the cervical spine without contrast. Radiation optimization: All CT scans at this facility use at least one of these dose optimization techniques: automated exposure control; mA and/or kV adjustment per patient size (includes targeted exams where dose is matched to clinical indication); or iterative reconstruction. COMPARISON: CR XR SHOULDER RT MIN 2V 08/26/2023 5:50 AM FINDINGS: Bones/joints: There is slight loss of disc space height at C5-C6 and C6-C7 related to mild degenerative disc disease. There are posterior disc osteophyte complexes at C5-C6 and C6-C7 as well. There is no acute cervical spine fracture. There is no subluxation. Lungs: Lung apices are normal. Soft tissues: Unremarkable. IMPRESSION: 1. There is no acute cervical spine fracture. There is no subluxation. 2. There are some degenerative changes. If radicular symptoms persist, a follow-up MRI should be considered.
[2023-08-26] MEDS: LIDOCAINE 5% TRANSDERMAL PATCH 1 EACH TP (06:02)
[2023-08-26] MEDS: METHOCARBAMOL 500MG TABLET 500 MG PO (06:02)
[2023-08-26] MEDS: ACETAMINOPHEN 500MG TAB 1000 MG PO (06:02)
--- NOTE | 2023-08-26 06:03 | ED_ITS ---
Discharge Plan Disposition Patient Disposition: Home, Self-Care Condition: Good Prescriptions Prescriptions: New lidocaine 5 % adhesive patch,medicated 1 patch topical DAILY Qty: 15 0RF Rx Instructions: apply to most painful area, remove after 12 hours and leave off for 12 hours before applying new patch. No Action buprenorphine-naloxone 2-0.5 mg tablet, sublingual 1 tab SL DAILY Patient Comments: DISSOLVE 1.5 TABLETS SUBLINGUALLY EVERY DAY promethazine-phenylephrine [Promethazine VC] 6.25-5 mg/5 mL syrup 5 ml PO Q4-6H PRN (Reason: cold symptoms) Qty: 120 0RF Rx Instructions: Do not drink alcohol while taking this medication Referrals Follow up/Referrals: Scott Danielle DO [Primary Care Provider] - See instructions Activity Restrictions/Add. Instructions Additional Instructions/Restrictions: You were evaluated in the ER. You are appropriate for discharge at this time. As discussed, avoid carrying objects on your right shoulder, avoid lifting the right arm above the head. Take Tylenol and ibuprofen if needed for pain, do not exceed the recommended doses on the bottles. Apply lidocaine patches to this area as prescribed. Make an appointment with your primary care physician for reevaluation in 2 to 3 days, return to the ER with new, worsening, or otherwise concerning symptoms. Clinical Impressions Clinical Impression: Neck pain on right side Stand Alone Forms Stand Alone Forms: Work/School Release Instructions Patient Instructions: DI for Neck Pain Discharge ED Provider: Wood Stuart Adult HPI General Chief complaint: Neck Pain/Injury Stated complaint: right shoulder pain and neck pain Time Seen by Provider: 08/26/23 05:38 Mode of Arrival: Family Vehicle Source of Information: Patient Limitations: No Limitations Description of Symptoms (Recalled from ER Triage Doc. by RN): 33 yo male presents with cc of right neck/shoulder pain. patient states it has been ongoing for the last week 'or'so, however tonight it is preventing him from sleep. vss. denies angina, denies soa,denies nausea/vomiting. History of Present Illness HPI narrative: 33-year-old male who takes Suboxone daily presents to the ER with concerns of right neck and right shoulder pain. Patient states this pain has been going on for approximately 1 week. He woke up with it 1 morning and it has progressively gotten worse. Patient states it was bad enough tonight to keep him awake so he came to the ER. He states he has pain that radiates from the right side of his neck into his right shoulder. It is worse when he turns his head to the left. 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 Medical History (Updated 08/26/23 @ 06:12 by Wood Stuart MD) Post-nasal drainage Left serous otitis media GERD (gastroesophageal reflux disease) Surgical History Hx of myringotomy Family History Other Hypertension Social History Smoking Status: Unknown if ever smoked second hand exposure: Yes alcohol intake: never substance use type: former substance user and heroin current occupational status: other Travel in the last 8 weeks: None household members: spouse housing: house current occupational exposures/hazards: No caffeine: Yes ROS Obtained: Yes All systems reviewed & no additional complaints except as documented Constitutional Constitutional: Denies chills, Denies fever(s), Denies headache(s) and Denies weakness Eyes Eyes: Denies change in vision ENT Ears, Nose, Mouth, and Throat: Denies dizziness, Denies headache(s), Denies nasal congestion, Reports neck pain and Denies sore throat Cardiovascular Cardiovascular: Denies chest pain, Denies dyspnea and Denies leg edema Respiratory Respiratory: Denies cough and Denies dyspnea Gastrointestinal Gastrointestingal: Denies constipation, diarrhea, nausea or vomiting Genitourinary Male Genitourinary: Denies difficulty urinating Musculoskeletal Musculoskeletal: Denies arthralgias, Denies myalgias, Reports neck pain, Denies numbness and Denies tingling Integumentary/Breasts Skin/Breast: Denies change in pigmentation Neurologic Neurologic: Denies dizziness, Denies headache(s), Denies numbness, Denies tingling and Denies weakness Physical Exam General General appearance: alert and in no apparent distress Head Head exam: atraumatic and normocephalic Eye Eye exam: Present PERRL and EOMI ENT ENT exam: Present mucous membranes moist Neck Neck exam: Present normal inspection, full ROM and tenderness (Tenderness to palpation of the right cervical paraspinal muscles, right trapezius, no midline tenderness or deformity) Chest Chest inspection: Present symmetric chest wall rise Respiratory Respiratory exam: Absent respiratory distress or stridor Cardiovascular Cardiovascular exam: Present regular rate and normal rhythm Abdominal Exam Abdominal exam: Present soft; Absent distention or tenderness Extremities Exam Extremities exam: Present full ROM Neurological Exam Neurological exam: Present alert and oriented X3; Absent motor sensory deficit Psychiatric Psychiatric exam: Present normal affect and normal mood Skin Skin exam: Present warm and dry Medical Decision Making Mac Inquiry Pt receiving controlled substance: No Vital Signs: 08/26/23 05:13 08/26/23 05:35 08/26/23 06:15 Temperature 97.9 F Temperature Source Oral Pulse Rate 62 60 Pulse Rate [Right Brachial] 69 Respiratory Rate 15 Blood Pressure 131/69 142/67 H Blood Pressure [Right Arm] 142/67 H Blood Pressure Mean [Right Arm] 92 Blood Pressure Source [Right Arm] Automatic Cuff Blood Pressure Position [Right Arm] Sitting 02 Sat by Pulse Oximetry 99 98 98 Oxygen Delivery Method Room Air Room Air Room Air Orders (Tests/Meds): ED MEDICATIONS Discontinued Medications Generic Name Dose Route Start Last Admin Trade Name Freq PRN Reason Stop Dose Admin Acetaminophen 1,000 mg 08/26/23 05:46 08/26/23 06:02 Acetaminophen 500mg Tab PO 08/26/23 05:47 1,000 mg ONCE ONE Administration Ketorolac Tromethamine 15 mg 08/26/23 05:46 08/26/23 06:10 Ketorolac 30mg/Ml Vial IV 08/26/23 05:47 Not Given ONCE ONE Ketorolac Tromethamine 15 mg 08/26/23 06:03 08/26/23 06:04 Ketorolac 30mg/Ml Vial IM 08/26/23 06:04 15 mg ONCE ONE Administration Lidocaine 1 each 08/26/23 05:46 08/26/23 06:02 Lidocaine 5% Transdermal Patch TP 08/26/23 05:47 1 each ONCE ONE Administration Methocarbamol 500 mg 08/26/23 09:00 08/26/23 06:02 Methocarbamol 500mg Tablet PO 09/25/23 08:59 500 mg BID VILLA Administration ORDERS Category Date Time Status CT cervical spine wo con Stat Cat Scan 08/26/23 05:46 Taken Shoulder XR right miminum 2 views [XR shoulder RT min Exams 08/26/23 05:46 Taken 2V] Stat Medical Decision Narrative: In summary, this 33year old male presents to the emergency department today with right-sided neck pain radiating to the shoulder that is worse when he turns his head to the left. On initial evaluation patient is hemodynamically stable, afebrile, resting comfortably. On range of motion testing, patient has worsening of his pain in the right side of the neck and right shoulder when he turns his head to the left, he has no neurologic deficits, no findings of trauma, tenderness to palpation of the right cervical paraspinal muscle and trapezius muscle, no deformity or step-off, no midline tenderness. Differential diagnosis includes but is not limited to cervical radiculopathy, disc extrusion, bone spur, brachial plexus injury. 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 Based on these concerns, I ordered multimodal pain control, CT cervical spine, x-ray right shoulder. Patient received Tylenol, Toradol, Robaxin, lidocaine patch for treatment. No labs are necessary at this time. X-ray of the right shoulder personally interpreted does not demonstrate any acute osseous abnormality. See radiology read for final interpretation. CT imaging of the neck does not demonstrate any acute fracture or malalignment on my personal interpretation. See radiology read for final interpretation. On reassessment patient states he has had some improvement of his pain. He is appropriate for discharge. Patient's prescriptions were reviewed and he already has prescription for cyclobenzaprine so I will not be prescribing methocarbamol. He was instructed to take [id number] Tylenol and ibuprofen. I did prescribe lidocaine patches. Patient was given instructions on symptomatic management, follow up instructions, and return precautions for the emergency department. Patient indicated understanding and was discharged in stable condition. Critical Care Critical Care Time Critical Care Time: No
[2023-08-26] MEDS: KETOROLAC 30MG/ML VIAL 15 MG IM (06:04)
[2023-08-26 06:15] VITALS: BP 142/67; PULSE 60; O2SAT 98
[2023-08-26 08:08] VITALS: BP 120/69; PULSE 63; RESP 18; TEMP 36.6; O2SAT 97
== END 2023-08-26 08:10 | disposition home or self-care (01) ==
PROVIDERS: Emergency Provider Emergency Medicine; PCP Internal Medicine
DX: M54.2 Cervicalgia (principal); M25.511 Pain in right shoulder; K21.9 Gastro-esophageal reflux disease without esophagitis
CPT/HCPCS: 72125; 73030; 96372; 96374; 99284